=== PATIENT | female | born 1950 | race Caucasian/White ===

== ENCOUNTER 2017-09-22 16:28 | Emergency (ER) | payer OTHER ==
[~2017-09-22] VITALS: Ht 154.9 cm; Wt 39.5 kg
[2017-09-22] MEDS ORDERED: KLONOPIN0.5 MG PO (16:41)
[2017-09-22] MEDS ORDERED: OXYBUTYNIN 5 MG5 M2 PO (16:41)
[2017-09-22] MEDS ORDERED: VICODIN 5-3001 EACH PO (16:41)
[2017-09-22] MEDS ORDERED: NEXIUM40 MG PO (16:41)
[2017-09-22] MEDS ORDERED: VITAMIN D400 UNIT PO (16:41)
[2017-09-22] MEDS ORDERED: ZOLOFT50 MG PO (16:41)
[2017-09-22] MEDS ORDERED: ROPINIROLE HCL0.5 MG PO (16:42)
[2017-09-22] MEDS ORDERED: SYNTHROID50 MCG PO (16:42)
[2017-09-22] MEDS ORDERED: LOPRESSOR50 PO (16:43)
[2017-09-22 17:21] LABS: ABSOLUTE EOSINOPHILS 0.1 thou/uL (0.0-0.7); ABSOLUTE LYMPHOCYTES 1.6 thou/uL (0.8-5.3); ABSOLUTE MONOCYTES 0.5 thou/uL (0.0-1.2); ABSOLUTE NEUTROPHILS 4.8 thou/uL (1.6-8.1); BASOPHILS 0.4 %; EOSINOPHILS 1.3 %; HEMATOCRIT 42.3 % (37.0-47.0); LYMPHOCYTES 22.2 %; MCH 28.3 pg (26.0-34.0); MCHC 33.2 g/dL (28.0-37.0); MCV 85.3 fL (80.0-100.0); MONOCYTES 7.1 %; MPV 8.9 fl. (7.2-11.1); NUCLEATED RBCS 0 /100WBC; PLATELET COUNT* 200 thou/uL (150-400); RBC 4.96 mil/uL (4.20-5.00); RDW-CV 14.8 % (10.5-14.5)
[2017-09-22 17:25] LABS: CALCIUM 8.9 mg/dL (8.5-10.1); CREATININE 1.2 mg/dL (0.6-1.3); POTASSIUM 4.1 mmol/L (3.5-5.1)
[2017-09-22 17:30] LABS: ALBUMIN 3.4 g/dL (3.4-5.0); TOTAL BILIRUBIN 0.3 mg/dL (<0.1-1.0); TOTAL PROTEIN 6.7 g/dL (6.4-8.2)
[2017-09-22 18:15] LABS: URINE BILIRUBIN NEGATIVE (Negative); URINE BLOOD NEGATIVE (Negative); URINE CLARITY CLEAR; URINE COLOR STRAW; URINE GLUCOSE-RANDOM NEGATIVE (Negative); URINE KETONES NEGATIVE (Negative); URINE LEUKOCYTES-REFLEX NEGATIVE (Negative); URINE NITRITE-REFLEX NEGATIVE (Negative); URINE PROTEIN NEGATIVE (Negative); URINE SPECIFIC GRAVITY <= 1.005 (1.005-1.030); URINE UROBILINOGEN 0.2 E.U./dl (0.2-1.0)
[2017-09-22 18:48] VITALS: BP 91/60
--- NOTE | 2017-09-23 10:43 | EKG ---
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 : 1950 Requested By: Meño Calixto Order Number: [id number] MD: José Persaud Measurements Intervals [place] Rate: 57 P: 72 OK: 119 QRS: 60 QRSD: 86 T: 121 QT: 406 QTc: 396 Interpretive Statements Sinus rhythm Borderline short OK interval Abnormal R-wave progression, early transition LVH with secondary repolarization abnormality No previous ECG available for comparison Electronically Signed On 09-23-2017 10:43:09 CDT by José Persaud [email or web address] <ELECTRONICALLY SIGNED> By: José Persaud MD, [facility] 09/23/17 1043 1659 1659 José Persaud MD, FAC /EPI
== END 2017-09-22 18:49 | disposition home or self-care (01) ==
LOC: M.ERS 16:28
PROVIDERS: Nurse Practitioner Psychiatric/Mental Health
DX: R63.4 Abnormal weight loss (principal); R53.83 Other fatigue; J44.9 Chronic obstructive pulmonary disease, unspecified; F31.9 Bipolar disorder, unspecified

== ENCOUNTER 2018-11-20 19:14 | Emergency (ER) | payer OTHER ==
[~2018-11-20] VITALS: Ht 154.9 cm; Wt 45.8 kg
[~2018-11-20 19:14] MED LIST: KLONOPIN0.5 MG PO; LOPRESSOR50 PO; NEXIUM40 MG PO; OXYBUTYNIN 5 MG5 M2 PO; ROPINIROLE HCL0.5 MG PO; SYNTHROID50 MCG PO; VICODIN 5-3001 EACH PO; VITAMIN D400 UNIT PO; ZOLOFT50 MG PO
[2018-11-20] MEDS ORDERED: UNICOMPLEX M TA1 TA1 PO (19:30)
[2018-11-20] MEDS ORDERED: BIOTIN5000 MCG PO (19:31)
[2018-11-20] MEDS ORDERED: VITAMIN B125000 MCG PO (19:31)
[2018-11-20] MEDS ORDERED: SYMBICORT160 MCG/4. INH (19:32)
[2018-11-20] MEDS ORDERED: PREDNISOLONE ACE5 ML OPHTHALMIC (19:32)
[2018-11-20] MEDS ORDERED: EPIDIOLEX100 MG/1 M PO (19:33)
[2018-11-20] MEDS ORDERED: IPRAT-ALBUT 0.5-3 ML INH (19:33)
[2018-11-20] MEDS ORDERED: XALATAN2.5 ML OPHTHALMIC (19:35)
[2018-11-20 19:41] LABS: ABSOLUTE MONOCYTES 0.7 thou/uL (0.0-1.2); ABSOLUTE NEUTROPHILS 4.7 thou/uL (1.6-8.1); BASOPHILS 0.3 %; EOSINOPHILS 0.6 %; HEMATOCRIT 37.9 % (37.0-47.0); HEMOGLOBIN 12.7 gm/dL (12.0-15.0); LYMPHOCYTES 15.8 %; MCH 28.3 pg (26.0-34.0); MCHC 33.5 g/dL (28.0-37.0); MCV 84.7 fL (80.0-100.0); MPV 9.3 fl. (7.2-11.1); NUCLEATED RBCS 0 /100WBC; PLATELET COUNT* 216 thou/uL (150-400); POLYS 72.3 %; RBC 4.47 mil/uL (4.20-5.00); RDW-CV 14.2 % (10.5-14.5); WBC 6.5 thou/uL (4.0-11.0)
[2018-11-20 19:52] LABS: ANION GAP 10 mmol/L (7-16); BUN 13 mg/dL (7-18); CHLORIDE 101 mmol/L (98-107); CO2 25 mmol/L (21-32); CREATININE 1.1 mg/dL (0.6-1.3); GLUCOSE 117 mg/dL (70-99); POTASSIUM 3.8 mmol/L (3.5-5.1); SODIUM 136 mmol/L (136-145)
[2018-11-20 19:56] LABS: ALBUMIN 3.1 g/dL (3.4-5.0); ALKALINE PHOSPHATASE 93 U/L (46-116); LIPASE 74 U/L (73-393); SGOT 11 U/L (15-37); SGPT 19 U/L (30-65); TOTAL BILIRUBIN 0.5 mg/dL (<0.1-1.0); TROPONIN-I LEVEL <0.06 ng/mL (<0.06)
[2018-11-20 20:49] LABS: URINE BILIRUBIN NEGATIVE (Negative); URINE BLOOD NEGATIVE (Negative); URINE CLARITY CLEAR; URINE COLOR YELLOW; URINE GLUCOSE-RANDOM NEGATIVE (Negative); URINE KETONES NEGATIVE (Negative); URINE LEUKOCYTES-REFLEX NEGATIVE (Negative); URINE NITRITE-REFLEX NEGATIVE (Negative); URINE PROTEIN NEGATIVE (Negative); URINE SPECIFIC GRAVITY <= 1.005 (1.005-1.030); URINE UROBILINOGEN 0.2 E.U./dl (0.2-1.0)
[2018-11-20] MEDS ORDERED: AZITHROMYCIN 2250 MG PO (21:55)
[2018-11-20] MEDS ORDERED: ZOFRAN ODT4 MG PO (21:56)
[2018-11-20 22:05] VITALS: BP 95/66
--- NOTE | 2018-11-23 12:32 | EKG ---
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 : 1950 Requested By: Tran Schulte Order Number: [id number] MD: Tod Angela Measurements Intervals [place] Rate: 91 P: 67 IA: 109 QRS: 43 QRSD: 78 T: 201 QT: 316 QTc: 389 Interpretive Statements Sinus rhythm Multiple ventricular premature complexes Short IA interval LVH with secondary repolarization abnormality Anterior Q waves, possibly due to LVH Compared to ECG 09/22/2017 16:59:55 Ventricular premature complex(es) now present Q waves now present Electronically Signed On 11-23-2018 12:32:01 CDT by Tod Angela [email or web address] <ELECTRONICALLY SIGNED> By: Tod Angela MD, [facility] 11/23/18 1232 48 48 Tod Angela MD, [facility] /EPI
== END 2018-11-20 22:07 | disposition home or self-care (01) ==
LOC: M.ERS 19:14
PROVIDERS: Emergency Medicine
DX: J18.9 Pneumonia, unspecified organism (principal); E86.0 Dehydration; F17.200 Nicotine dependence, unspecified, uncomplicated; F31.9 Bipolar disorder, unspecified; G25.81 Restless legs syndrome; J44.9 Chronic obstructive pulmonary disease, unspecified; Z90.710 Acquired absence of both cervix and uterus